=== PATIENT | male | born 1975 | race Caucasian/White ===

== ENCOUNTER → 2023-11-29 07:33 | Outpatient (CLI) | payer BC, SELFPAY ==
--- NOTE | ~2023-11-29 | MR_ITS ---
MRI of the brain Clinical History: Dizziness, hearing loss Technique: Axial and sagittal T1-weighted images were acquired. These were followed by axial T2-weigh anisa, diffusion weighted, gradient, and FLAIR images. Thin cut coronal and axial T1-weighted and T2-we ighted images were acquired through the internal auditory canals. Following intravenous administratio n of 19 cc MultiHance gadolinium, T1-weighted fat-sat imaging was performed through the brain in the axial and coronal planes. Thin cut T1-weighted postcontrast imaging was performed through the interna l auditory canals in the axial and coronal planes. Findings: There is no acute infarct, internal hemorrhage, or mass lesion. There are minimal chronic w marci matter changes in the periventricular white matter bilaterally. Ventricles and subarachnoid spaces are unremarkable. Orbits are unremarkable. Paranasal sinuses and m astoid air cells are clear. Major intracranial flow voids are intact. Sagittal midline structures are intact. No abnormal mass lesion seen at the internal auditory canals or cerebellopontine angle regions. No abnormal postcontrast enhancement identified. IMPRESSION: No acute infarct, intracranial hemorrhage, or mass lesion. Minimal chronic white matter ischemic changes. Reviewed, dictated and finalized at location . D [employer]UDY TE[employer] DIRECTOR
== END ==
PROVIDERS: PCP Nurse Practitioner Family; Visit Provider Nurse Practitioner Family
DX: H91.90 Unspecified hearing loss, unspecified ear (principal); J32.9 Chronic sinusitis, unspecified; R90.82 White matter disease, unspecified
CPT/HCPCS: 70553; A9577